=== PATIENT | male | born 1950 | race Caucasian/White ===

== ENCOUNTER → 2018-02-18 | Outpatient (CLI) | payer MEDICARE ==
--- NOTE | 2018-02-18 09:05 | CT ---
EXAMINATION TYPE: CT hip LT wo con DATE OF EXAM: 02/18/2018 COMPARISON: None HISTORY: T84.84XA pain due to internal ortho device Unenhanced CT of the left hip was performed with bone and soft tissue window settings submitted. Axia l coronal and sagittal images are reviewed. 3-D reconstruction was obtained at a separate workstation . Automated exposure control for dose reduction was used. FINDINGS: There is evidence of left hemiprosthesis proximal femur. There is complete dislocation noted intracra nially. There is extensive bony fragmentation and heterotopic ossification noted. I do not see eviden ce for an acute fracture. There is lucency noted along the stem component of the proximal femur which may reflect loosening and/or periprosthetic infection. Acetabular irregularity and spurring noted. IMPRESSION: 1. COMPLETE DISLOCATION LEFT HEMIPROSTHESIS CRANIALLY. 2. BONY FRAGMENTATION AND HETEROTOPIC OSSIFICATION NOTED.
== END ==
LOC: RADCTMAIN 08:04
PROVIDERS: ATTEND Orthopaedic Surgery
DX: T84.021A Dislocation of internal left hip prosthesis, initial encounter (principal); T84.011A Broken internal left hip prosthesis, initial encounter; Z96.642 Presence of left artificial hip joint

== ENCOUNTER → 2019-10-06 | Outpatient (CLI) | payer MEDICARE ==
--- NOTE | 2019-10-11 11:56 | P.ARTDOP ---
Arterial Doppler LOWER EXTREMITY ARTERIAL DOPPLER: DATE OF SERVICE: 10/06/2019: Reason for study: Bilateral leg numbness. Doppler waveforms: Multiphasic bilaterally throughout. Pulse volume recording: Normal toe waveforms. Pressure gradients: None. Ankle-brachial indices: Greater than 1 bilaterally. Toe brachial indices: 0.74 on the right, 0.87 on the left Impression: Normal study.
== END | disposition home or self-care (01) ==
LOC: RADUSWWP 09:25
PROVIDERS: ATTEND Family Medicine
DX: I73.9 Peripheral vascular disease, unspecified (principal)
CPT/HCPCS: 93922

== ENCOUNTER 2021-08-14 08:09 | Outpatient (CLI) | payer MEDICARE ==
[2021-08-13 09:03] VITALS: BMI 49.3
[~2021-08-14 08:09] MED LIST: DEXAMETHASONE SOD PHOSPHATE 4 MG/ML 1 ML VIAL IV ONE; HYDROmorphone 0.5 MG/0.5 ML SYRINGE IVP PRN; LACTATED RINGERS 1,000 ML IV SCH; LIDOCAINE 1% (10MG/ML) FOR IV START INTRADERMA PRN; MIDAZOLAM 2 MG/2 ML VIAL IV PRN; ONDANSETRON 4 MG/2 ML VIAL IVP ONE
[2021-08-14 08:43] VITALS: TEMP 96.8
[2021-08-14 08:57] LABS: Glucose,Whole Blood 89 mg/dL (75-99)
[2021-08-14] MEDS ORDERED: PROPOFOL 10 MG/ML 20 ML VIAL IV ONE (10:01)
[2021-08-14] MEDS ORDERED: IV FLUID CONTINUATION 1,000 ML IV ONE (10:19)
[2021-08-14 10:22] VITALS: RESP 16
[2021-08-14 10:35] VITALS: BP 96/62; PULSE 88
--- NOTE | 2021-08-14 10:53 | CT ---
EXAMINATION TYPE: CT lumbar spine wo con DATE OF EXAM: 08/14/2021 10:28 AM COMPARISON: None HISTORY: Lumbar DDD CT DLP: [id number] mGycm Automated exposure control for dose reduction was used. Unenhanced CT of the lumbar spine was performed. Bone and soft tissue window settings are submitted as well as coronal and sagittal reconstructions. L1-L2: Severe degenerative disc space narrowing with endplate sclerosis and irregularity as well as v entral and dorsal spondylosis. Posterior disc bulge effaces the ventral thecal sac. Severe facet join t arthropathy. No definite central stenosis. L2-L3: Severe degenerative disc space narrowing with endplate sclerosis and irregularity as well as v entral and dorsal spondylosis. Posterior disc bulge effaces the ventral thecal sac. Severe facet join t arthropathy decompressive laminectomy change noted. No evidence for recurrent or residual disease. L3-L4: Severe degenerative disc space narrowing with endplate sclerosis and irregularity as well as v entral and dorsal spondylosis. Posterior disc bulge effaces the ventral thecal sac. Severe facet join t arthropathy decompressive laminectomy changes noted. Posterior hypertrophic change may result in le ft lateral recess stenosis. Bilateral foraminal encroachment left greater than right. L4-L5: Severe degenerative disc space narrowing with endplate sclerosis and irregularity as well as v entral and dorsal spondylosis. Posterior disc bulge effaces the ventral thecal sac. Severe facet join t arthropathy . Decompressive laminectomy change. No evidence for recurrent or residual disease. L5-S1: Severe degenerative disc space narrowing with endplate sclerosis and irregularity as well as v entral and dorsal spondylosis. Posterior disc bulge effaces the ventral thecal sac. Severe facet join t arthropathy. Decompressive laminectomy change. No evidence for recurrent or residual disease. IMPRESSION: Severe multilevel degenerative disc disease and spondylosis. Extensive postoperative change. Lack of contrast limits evaluation. See above.
== END 2021-08-14 10:48 | disposition home or self-care (01) ==
LOC: OR 08:09
PROVIDERS: ATTEND Family Medicine
DX: M51.16 Intervertebral disc disorders with radiculopathy, lumbar region (principal); G47.33 Obstructive sleep apnea (adult) (pediatric); K92.2 Gastrointestinal hemorrhage, unspecified; K59.00 Constipation, unspecified; J44.9 Chronic obstructive pulmonary disease, unspecified; I48.91 Unspecified atrial fibrillation; E66.01 Morbid (severe) obesity due to excess calories; Z68.43 Body mass index [BMI] 50.0-59.9, adult; E11.22 Type 2 diabetes mellitus with diabetic chronic kidney disease; I13.0 Hypertensive heart and chronic kidney disease with heart failure and stage 1 through stage 4 chronic kidney disease, or unspecified chronic kidney disease; N18.30 Chronic kidney disease, stage 3 unspecified; I50.9 Heart failure, unspecified; I25.10 Atherosclerotic heart disease of native coronary artery without angina pectoris; F41.1 Generalized anxiety disorder; E78.00 Pure hypercholesterolemia, unspecified; E03.9 Hypothyroidism, unspecified; M16.10 Unilateral primary osteoarthritis, unspecified hip; Z79.890 Hormone replacement therapy; Z79.01 Long term (current) use of anticoagulants; Z79.84 Long term (current) use of oral hypoglycemic drugs
CPT/HCPCS: 72131; J1100; J2405; J2704

== ENCOUNTER 2024-03-01 07:52 | Day surgery (SDC) | payer MEDICARE ==
[2024-03-01 08:28] VITALS: TEMP 97.5
[2024-03-01] MEDS: IV FLUID CONTINUATION 1,000 ML IV ONE (08:41)
[2024-03-01] MEDS: LACTATED RINGERS 1,000 ML IV SCH (08:42)
[2024-03-01 08:54] LABS: Glucose,Whole Blood 103 mg/dL (70-110)
[2024-03-01 08:58] LABS: Basophils % (A) 1 %; Eosinophils # (A) 0.3 k/uL (0-0.7); Eosinophils % (A) 4 %; HCT 45.2 % (39.0-53.0); HGB 14.6 gm/dL (13.0-17.5); Hypochromasia Slight; Lymphocytes # (A) 1.4 k/uL (1.0-4.8); Lymphocytes % (A) 16 %; MCH 26.6 pg (25.0-35.0); MCHC 32.2 g/dL (31.0-37.0); MCV 82.7 fL (80.0-100.0); Mean Platelet Volume 6.7; Monocytes # (A) 0.4 k/uL (0-1.0); Monocytes % (A) 5 %; Neutrophils # (A) 6.4 k/uL (1.3-7.7); Neutrophils % (A) 73 %; Platelet Count 424 k/uL (150-450); RBC 5.47 m/uL (4.30-5.90); RDW 15.1 % (11.5-15.5); WBC 8.7 k/uL (3.8-10.6)
[2024-03-01] MEDS ORDERED: PROPOFOL 10 MG/ML 20 ML VIAL IV ONE (09:00)
[2024-03-01] MEDS ORDERED: LIDOCAINE 1% INJ 10MG/ML (20 ML MDV) ONE (09:00)
[2024-03-01 09:11] LABS: ALT 26 U/L (4-49); AST 35 U/L (17-59); African American GFR (CKD) 84 (>60 ml/min/1.73 sqM); Albumin 4.4 g/dL (3.5-5.0); Alkaline Phosphatase 100 U/L (38-126); Anion Gap 6 mmol/L; Blood Urea Nitrogen 17 mg/dL (9-20); Calcium 9.7 mg/dL (8.4-10.2); Carbon Dioxide 34 mmol/L (22-30); Chloride 100 mmol/L (98-107); Glucose 104 mg/dL (74-99); Non-African American GFR(CKD) 72 (>60 ml/min/1.73 sqM); Potassium 3.7 mmol/L (3.5-5.1); Sodium 140 mmol/L (137-145); Total Bilirubin 1.8 mg/dL (0.2-1.3); Total Protein 7.7 g/dL (6.3-8.2)
[2024-03-01 09:14] LABS: Appearance,Urine Turbid (Clear); Bacteria,Urine Few /hpf; Bilirubin,Urine Negative (Negative); Blood,Urine Moderate (Negative); Color,Urine Yellow; Glucose,Urine (UA) Negative (Negative); Ketones,Urine Negative (Negative); Leukocyte Esterase,Urine Large (Negative); Mucus,Urine Rare /hpf; Nitrite,Urine Positive (Negative); Protein,Urine 2+ (Negative); RBC,Urine 25 /hpf (0-5); Specific Gravity,Urine 1.017 (1.001-1.035); Urobilinogen,Urine <2.0 mg/dL (<2.0); WBC,Urine >182 /hpf (0-5)
[2024-03-01 09:19] LABS: NT-Pro-B-Type Natriuretic Pept 60 pg/mL
--- NOTE | 2024-03-01 09:25 | P.PCN ---
Date of Procedure: 03/01/24 Procedure(s) Performed: Brief history: Patient is a pleasant 73-year-old white male scheduled for an elective upper endoscopy as well as colonoscopy as a part of evaluation of GERD and intermittent rectal bleeding for the last several months duration Procedure performed: Esophagogastroduodenoscopy with biopsy Colonoscopy Preoperative diagnosis: GERD Intermittent rectal bleeding Anesthesia: [facility] [place] Procedure: After informed consent was obtained from the patient was brought into the endoscopy unit and IV sedation was administered by anesthesia under continuous monitoring. Initially upper endoscopy was done. The Olympus GF 160 video endoscope was inserted inserted into the mouth and esophagus intubated without any difficulty and was gradually advanced into the stomach and duodenum and carefully examined. The bulb and second part of the duodenum appeared normal. The scope was then withdrawn into the stomach adequately insufflated with air and upon careful examination the antrum had mild gastritis and biopsies were done for this area. Mucosa body, cardia and fundus appeared normal. The scope was then withdrawn into the esophagus. The GE junction was located at 40 cm to the incisors. It appeared regular with no erythema erosions or ulcerations. Rest of the esophagus appeared normal. Patient tolerated the procedure well. At this time the patient continued to remain sedation. Initial digital rectal examination was normal. Olympus CF 160 video colonoscope was then inserted into the rectum and gradually advanced to the cecum with moderate to severe difficulty. Careful examination was performed as the scope was gradually being withdrawn. The prep was fair. The cecum, ascending colon, transverse colon, descending colon, sigmoid colon and rectum appeared normal. Retroflexion was performed in the rectum and grade 2 internal hemorrhoids noted. Scattered sigmoid diverticulosis seen. Patient tolerated the procedure well. Impression: 1. Upper endoscopy revealed mild antral gastritis but no evidence of esophagitis or Aguayo's esophagus 2. Colonoscopy revealed scattered sigmoid diverticulosis and grade 2 internal hemorrhoids Recommendations: Findings of this examination were discussed with the patient as well as his family. He was advised to continue with his current medications and avoid straining and constipation. Recommended repeat screening colonoscopy in 10 years.
[2024-03-01 09:36] VITALS: RESP 16
[2024-03-01 09:52] VITALS: BP 122/71; PULSE 86
== END 2024-03-01 10:06 | disposition home or self-care (01) ==
LOC: ORWHC2ENDO 07:52
PROVIDERS: ATTEND Internal Medicine Gastroenterology
DX: K29.50 Unspecified chronic gastritis without bleeding (principal); K57.30 Diverticulosis of large intestine without perforation or abscess without bleeding; K64.1 Second degree hemorrhoids; K21.9 Gastro-esophageal reflux disease without esophagitis; I10 Essential (primary) hypertension; E78.5 Hyperlipidemia, unspecified; E07.9 Disorder of thyroid, unspecified; E11.9 Type 2 diabetes mellitus without complications; M19.90 Unspecified osteoarthritis, unspecified site; F40.240 Claustrophobia; K58.9 Irritable bowel syndrome, unspecified; Z79.01 Long term (current) use of anticoagulants; Z79.899 Other long term (current) drug therapy; Z88.8 Allergy status to other drugs, medicaments and biological substances
CPT/HCPCS: 88305; 83880; 80053; 85025; 81001; 87086; 45378; 43239; J2003; J2704; 87077; 87186

== ENCOUNTER → 2024-04-24 | Outpatient (CLI) | payer MEDICARE ==
[2024-04-24 16:48] LABS: HCT 47.1 % (39.6-50.0); HGB 15.1 g/dL (13.0-17.0); MCH 25.9 pg (27.0-32.0); MCHC 32.1 g/dL (32.0-37.0); MCV 80.7 FL (80.0-97.0); Mean Platelet Volume 9.4 FL (9.5-12.2); NRBC Per 100 WBC 0 X 10*3/uL (0.00-0.01); Platelet Count 354 X 10*3/uL (140-440); RBC 5.84 X 10*6/uL (4.40-5.60); WBC 8.48 X 10*3/uL (4.50-10.00)
[2024-04-24 18:04] LABS: BUN/Creat Ratio 12.08 Ratio (12.00-20.00); Blood Urea Nitrogen 14.5 mg/dL (9.0-27.0); Calcium 9.3 mg/dL (8.7-10.3); Carbon Dioxide 25.9 mmol/L (21.6-31.8); Chloride 101 mmol/L (96-109); Glucose 98 mg/dL (70-110); Potassium 3.6 mmol/L (3.5-5.5); Sodium 141 mmol/L (135-145)
== END | disposition home or self-care (01) ==
LOC: LABWHC1 12:23
PROVIDERS: ATTEND Urology
DX: Z01.810 Encounter for preprocedural cardiovascular examination (principal)
CPT/HCPCS: 36415; 80048; 85027